=== PATIENT | female | born 2005 | race Caucasian/White ===

== ENCOUNTER 2024-07-05 20:12 | Emergency (ER) | payer MEDICAID ==
[~2024-07-05] VITALS: Ht 154.9 cm; Wt 51.2 kg
[2024-07-05 20:36] VITALS: O2SAT 99
[2024-07-05 21:42] LABS: BASOPHILS % 0.2 % (0.0-2.0); EOSINOPHILS % 0.9 % (0.0-5.0); HEMATOCRIT. 37.6 % (36.0-48.0); HEMOGLOBIN. 12.9 g/dL (12.0-16.0); LYMPHOCYTES % 37.9 % (20.0-50.0); MEAN CORPUSCULAR HEMOGLOBIN 29.9 pg (28.0-32.0); MEAN CORPUSCULAR HGB CONC 34.3 g/dL (31.0-37.0); MEAN CORPUSCULAR VOLUME 87.3 fL (81.0-99.0); MEAN PLATELET VOLUME 7.7 fl (7.4-10.4); MONOCYTES % 8.1 % (2.0-8.0); NEUTROPHILS % 52.9 % (40.0-76.0); PLATELET 340 x1000/uL (130-400); RED BLOOD CELL COUNT 4.31 mill/uL (4.2-5.4); RED CELL DISTRIBUTION WIDTH 12.8 % (11.6-14.6); WHITE BLOOD COUNT 8.8 x1000/uL (4.5-11.0)
[2024-07-05 21:51] LABS: CARBON DIOXIDE 29 mEq/L (21-32); CHLORIDE 105 mEq/L (98-107); POTASSIUM 4.3 mEq/L (3.5-5.1); SODIUM 140 mEq/L (136-145)
[2024-07-05 21:52] LABS: CALCIUM 9.8 mg/dL (8.7-10.4)
[2024-07-05 21:56] LABS: CREATININE 0.8 mg/dL (0.6-1.0)
[2024-07-05 21:57] LABS: GLUCOSE 84 mg/dL (70-105); UREA NITROGEN BLOOD 13 mg/dL (9-23)
[2024-07-05 21:58] LABS: ALANINE AMINOTRANSFERASE < 7 IU/L (10-49); ASPARTATE AMINOTRANSFERASE 14 IU/L (<34)
[2024-07-05 21:59] LABS: ALBUMIN 4.5 g/dL (3.2-4.8); BILIRUBIN TOTAL 0.4 mg/dL (0.1-1.0); PROTEIN TOTAL 7.3 g/dL (6.0-8.3)
[2024-07-05 22:07] LABS: BILIRUBIN DIRECT < 0.1 mg/dL (<=3.0)
[2024-07-05 23:22] LABS: CLARITY URINE CLEAR (CLEAR); COLOR URINE YELLOW (YELLOW); GLUCOSE URINE NEGATIVE (NEGATIVE); KETONES URINE NEGATIVE (NEGATIVE); LEUKOCYTE ESTERASE URINE NEGATIVE (NEGATIVE); NITRITE URINE NEGATIVE (NEGATIVE); OCCULT BLOOD URINE NEGATIVE (NEGATIVE); PROTEIN URINE NEGATIVE (NEGATIVE); SPECIFIC GRAVITY URINE 1.021 (1.005-1.030); UROBILINOGEN URINE 0.2 E.U./dL (0.2-1.0)
[2024-07-05 23:49] VITALS: BP 100/53; PULSE 68; RESP 17; TEMP 36.66960; O2SAT 100
[2024-07-06 00:29] LABS: HCG SCREEN NEGATIVE
== END 2024-07-05 23:59 | disposition home or self-care (01) ==
LOC: ER 20:12
DX: R10.84 Generalized abdominal pain (principal)
CPT/HCPCS: 36415; 80048; 80076; 81003; 81025; 84703; 85025; 99283

== ENCOUNTER 2024-09-21 11:15 | Emergency (ER) | payer MEDICAID, OTHER ==
[~2024-09-21] VITALS: Ht 144.8 cm; Wt 52.2 kg
[2024-09-21 11:21] VITALS: O2SAT 98
[2024-09-21 11:22] VITALS: BP 96/63; RESP 16; TEMP 98.2; O2SAT 99
[2024-09-21 11:23] VITALS: PULSE 111
== END 2024-09-21 14:22 | disposition home or self-care (01) ==
LOC: ER 12:25
DX: R21 Rash and other nonspecific skin eruption (principal)
CPT/HCPCS: 99281